=== PATIENT | male | born 1985 | race Caucasian/White ===

== ENCOUNTER 2017-05-10 05:25 | Day surgery (SDC) | payer OTHER ==
[~2017-05-10] VITALS: Ht 177.8 cm; Wt 79.5 kg
[~2017-05-10 05:25] MED LIST: BENADRYL50 MG PO; CIPROFLOXACIN500 M1 PO; CLARITIN10 MG PO; EPIPEN ADU0.3 MG/0.3 IM; NASONEX17 GM BOTH NARES; PEPCID20 MG PO; PREDNISONE10 MG PO; PREDNISONE20 MG PO; VENTOLIN HFA18 GM IH; ZOFRAN ODT4 MG PO
[2017-05-10 05:51] VITALS: BP 120/70
[2017-05-10] MEDS ORDERED: PERCOCET 5/31 TABLET PO (09:07)
[2017-05-10 09:30] VITALS: BP 114/70
[2017-05-10 10:20] VITALS: BP 136/82
== END 2017-05-10 10:33 | disposition home or self-care (01) ==
LOC: SDC
PROC: 0JB70ZZ Excision of Back Subcutaneous Tissue and Fascia, Open Approach (ICD-10-PCS; principal; 2017-05-10)
DX: D17.1 Benign lipomatous neoplasm of skin and subcutaneous tissue of trunk (principal); Z87.891 Personal history of nicotine dependence; J45.909 Unspecified asthma, uncomplicated
CPT/HCPCS: 88304; J0690; J2250; J3010; S0020

== ENCOUNTER 2017-10-25 19:19 | Emergency (ER) | payer OTHER ==
[~2017-10-25] VITALS: Ht 177.8 cm; Wt 83.3 kg
[~2017-10-25 19:19] MED LIST changes: +PERCOCET 5/31 TABLET PO
[2017-10-25 22:15] VITALS: BP 122/70
== END 2017-10-25 22:16 | disposition home or self-care (01) ==
LOC: EME 19:19
DX: J10.1 Influenza due to other identified influenza virus with other respiratory manifestations (principal); J45.909 Unspecified asthma, uncomplicated; Z91.030 Bee allergy status
CPT/HCPCS: 87502; 99281; 99284